=== PATIENT | female | born 1980 | race Caucasian/White ===

== ENCOUNTER 2021-12-27 22:50 | Emergency (ER) | payer SELFPAY ==
[~2021-12-27] VITALS: Ht 167.6 cm; Wt 59.0 kg
[~2021-12-27 22:50] MED LIST: EFFEXOR XR150 MG OR; EFFEXOR75 MG OR; KEFLEX500 MG OR; LEXAPRO10 MG OR; LORTAB 5 OR; NYSTATIN100000 M1 MT; PENICILLN VK500 M1 OR; RESTORIL15 MG OR; SEROQUEL25 MG OR; XANAX0.25 MG OR
[2021-12-27] MEDS ORDERED: VOLTAREN75 MG PO (23:52)
[2021-12-28 00:15] VITALS: BP 115/78
== END 2021-12-28 00:17 | disposition home or self-care (01) | DRG 558 ==
LOC: ED 22:50
DX: M77.52 Other enthesopathy of left foot and ankle (principal); E11.9 Type 2 diabetes mellitus without complications; B19.20 Unspecified viral hepatitis C without hepatic coma; F17.200 Nicotine dependence, unspecified, uncomplicated

== ENCOUNTER 2021-12-31 23:58 | Emergency (ER) | payer SELFPAY ==
[~2021-12-31] VITALS: Ht 167.6 cm; Wt 63.0 kg
[~2021-12-31 23:58] MED LIST changes: +VOLTAREN75 MG PO
[2022-01-01] MEDS ORDERED: OMNI-PAC300 MG PO (01:06)
[2022-01-01] MEDS ORDERED: DOXYCYCLINE100 MG PO (01:06)
[2022-01-01] MEDS ORDERED: ZOFRAN4 MG/TAB PO (01:06)
[2022-01-01 01:25] VITALS: BP 133/69
== END 2022-01-01 01:25 | disposition left against medical advice (07) | DRG 603 ==
LOC: ED 23:58
DX: L03.116 Cellulitis of left lower limb (principal); R00.0 Tachycardia, unspecified; R60.9 Edema, unspecified; Z53.29 Procedure and treatment not carried out because of patient's decision for other reasons; M25.511 Pain in right shoulder

== ENCOUNTER 2022-10-11 20:21 | Emergency (ER) | payer SELFPAY ==
[~2022-10-11] VITALS: Ht 167.6 cm; Wt 50.0 kg
[2022-10-11] VITALS (12 sets, daily range): BP systolic 78–111; BP diastolic 46–55
[~2022-10-11 20:21] MED LIST changes: +DOXYCYCLINE100 MG PO; +OMNI-PAC300 MG PO; +ZOFRAN4 MG/TAB PO
[2022-10-11 21:55] LABS: BASO% 0.1 % (0-3); EOS% 0.2 % (0-8); HEMATOCRIT 31.1 % (37.0-47.0); HEMOGLOBIN 9.7 g/dl (12.0-16.0); IMMATURE GRANULOCYTES 3.2 % (0.0-5.0); LYMPH% 3.7 % (15-41); MEAN CORPUSCULAR HGB CONC 31.2 g/dL CAL (32.0-36.0); MONO% 3.2 % (2-13); NEUT# 8.62 thou/uL (2.00-7.15); NEUT% 89.6 % (42-76); RED BLOOD COUNT 4.21 mill/uL (4.20-5.60); RED CELL DISTRI WIDTH 17.3 % (11.5-15.5)
[2022-10-11 22:09] LABS: AMYLASE 42 u/l (30-110); CHLORIDE 98 mmol/l (95-108); LIPASE 12 u/l (23-300); POTASSIUM 3.8 mmol/l (3.5-5.1); SODIUM 133 mmol/l (137-146); TOTAL PROTEIN 7.3 g/dL (6.3-8.2)
[2022-10-11 22:16] LABS: MEAN CELL VOLUME 73.9 fL CALC (80.0-100.0)
[2022-10-11 22:18] LABS: ALBUMIN 2.7 g/dL (3.2-5.0); ANION GAP 30 (6-22 (CALC)); BILIRUBIN, TOTAL 1.9 mg/dL (0.02-1.3); BUN/CREATININE RATIO 12 (12-20 (CALC)); GFR FOR AFR.AMER. 7 ML/MIN (>=60 (CALC)); GFR OTHER RACES 6 ML/MIN (>=60 (CALC))
[2022-10-11 22:19] LABS: ALKALINE PHOSPHATASE 239 u/l (38-126); BUN 84 mg/dL (7-17); CREATININE 7.3 mg/dL (0.5-1.0); SGOT/AST 884 u/l (14-36)
[2022-10-11 22:20] LABS: CARBON DIOXIDE 9 mmol/l (22-30)
[2022-10-12] VITALS (17 sets, daily range): BP systolic 87–109; BP diastolic 41–79
[2022-10-12 01:15] LABS: URINE COLOR YELLOW; URINE GLUCOSE - DIPSTICK NEGATIVE (NEGATIVE)
[2022-10-12 01:16] LABS: URINE KETONE TRACE mg/dL (NEGATIVE); URINE PROTEIN - DIPSTICK >=300 mg/dL (NEG-TRACE); URINE SPECIFIC GRAVITY 1.015
[2022-10-12 01:17] LABS: URINE BLOOD DIPSTICK MODERATE (NEGATIVE); URINE LEUK ESTERASE SMALL (NEGATIVE); URINE NITRITE - DIPSTICK POSITIVE (Negative)
[2022-10-12 01:19] LABS: URINE BACTERIA MANY hpf; URINE EPITHELIAL CELLS MODERATE EPI/hpf (0-FEW); URINE WBC 20-50 WBC/hpf (0-5)
--- NOTE | 2022-10-13 08:15 | NUR ---
PRELIMINARY BLOOD CULTURE RESULTS SHOW GRAM POSITIVE COCCI IN 4/4 VIALS. RESULTS REPORTED TO NURSE MENENDEZ AT [facility].
== END 2022-10-12 04:38 | disposition short-term general hospital (02) | DRG 871 ==
LOC: ED 20:21
PROVIDERS: Emergency Medicine
PROC: 0T9B70Z Drainage of Bladder with Drainage Device, Via Natural or Artificial Opening (ICD-10-PCS; principal; 2022-10-12)
DX: A41.9 Sepsis, unspecified organism (principal); I26.90 Septic pulmonary embolism without acute cor pulmonale; J18.9 Pneumonia, unspecified organism; N39.0 Urinary tract infection, site not specified; B37.0 Candidal stomatitis; N17.9 Acute kidney failure, unspecified; F11.20 Opioid dependence, uncomplicated; E87.20 Acidosis, unspecified; B96.20 Unspecified Escherichia coli [E. coli] as the cause of diseases classified elsewhere; E86.0 Dehydration; E11.9 Type 2 diabetes mellitus without complications; B19.20 Unspecified viral hepatitis C without hepatic coma; F17.200 Nicotine dependence, unspecified, uncomplicated; Z20.822 Contact with and (suspected) exposure to COVID-19
CPT/HCPCS: S0164